=== PATIENT | male | born 1950 | race African-American/Black ===

== ENCOUNTER 2021-08-12 11:32 | Inpatient (IN) | payer OTHER ==
[2021-08-12] MEDS ORDERED: VANCOMYCIN 1,000 MG in DEXTROSE 5%-WATER - 250 ML IVPB ONE (13:02)
[2021-08-12] MEDS ORDERED: PIPERACILLIN/TAZOB 4.5 GM 4.5 GM in DEXTROSE 5%-WATER 100 ML IVPB ONE (13:02)
[2021-08-12] MEDS ORDERED: ACETAMINOPHEN 1000 MG/100 ML BAG IVPB ONE (13:02)
[2021-08-12] MEDS ORDERED: ACETAMINOPHEN INJECTION 100 ML IVPB ONE ×2 (13:57→17:45)
[2021-08-12] MEDS ORDERED: PIPERACILLIN/TAZOB 4.5 GM 4.5 GM/100 ML BAG IVPB ONE (13:58)
[2021-08-12 14:04] LABS: BASO % 0.6 % (0-2.0); HEMATOCRIT 27.7 % (35.4-49); HEMOGLOBIN 8.8 GM/dL (11.7-16.9); LYMPH % 14.9 % (8-40); MCH 25.6 pg (25.7-33.7); MCHC 31.8 g/dl (32.0-35.9); MEAN CELL VOLUME 80.7 fl (80-96); MEAN PLT VOLUME 8.4 fl (7.5-11.1); MONO % 7.9 % (3.8-10.2); NEUT % 71.6 % (42.8-82.8); PLATELET COUNT 363 10^3/uL (134-434); RBC 3.43 M/mm3 (4.00-5.60); RDW 17.5 % (11.9-15.9); WHITE BLOOD COUNT 12.3 K/mm3 (4.0-10.0)
[2021-08-12 14:42] LABS: CALCIUM 8.4 mg/dL (8.5-10.1)
[2021-08-12 14:43] LABS: ALBUMIN 2.9 g/dl (3.4-5.0); BLOOD UREA NITROGEN 26.8 mg/dL (7-18)
[2021-08-12 14:46] LABS: CREATININE 1.5 mg/dL (0.55-1.3)
[2021-08-12 14:47] LABS: BILIRUBIN,TOTAL 0.4 mg/dL (0.2-1); TOT PROT 6.9 g/dl (6.4-8.2)
[2021-08-12 14:59] LABS: ERYTHROCYTE SEDIMENTATION RATE 82 mm/hr (0-20)
[2021-08-12] MEDS ORDERED: LACTATED RINGERS SOLUTION 1000 ML INFUS.BAG IV ONE (15:02)
[2021-08-12] MEDS ORDERED: VANCOMYCIN 1 GM in D5W (PRE-DOCKED) 1,000 MG/250 ML IVPB ONE (16:54)
[2021-08-12] MEDS ORDERED: oxyCODONE HCL 5 MG TABLET ONE (17:44)
[2021-08-12] MEDS ORDERED: VANCOMYCIN 1 GRAM (PRE-DOCKED) 1,000 MG/250 ML BAG IVPB ONE (17:45)
[2021-08-12] MEDS: ACETAMINOPHEN 1000 MG/100 ML BAG IVPB PRN (17:58)
[2021-08-12] MEDS: oxyCODONE HCL 5 MG TABLET PO PRN (17:59)
[2021-08-12 21:46] LABS: EPI CELLS 4 /uL (0-25.1); HYALINE CASTS 7 /uL (0-3.1); URINE APPEARANCE CLOUDY; URINE BACTERIA 13 /uL (0-1359); URINE BILIRUBIN NEGATIVE (NEGATIVE); URINE COLOR YELLOW; URINE GLUCOSE (UA) NEGATIVE (NEGATIVE); URINE KETONE TRACE (NEGATIVE); URINE LEUK ESTERASE 3+ (NEGATIVE); URINE NITRITE NEGATIVE (NEGATIVE); URINE PROTEIN TRACE (NEGATIVE); URINE RBC 15 /uL (0-23.9); URINE UROBILINOGEN 0.2 mg/dL (0.2-1.0); URINE WBC 908 /uL (0-25.8)
[2021-08-12] MEDS ORDERED: HEPARIN NA (PORCINE) 5,000 UNITS/ML 1ML VIAL SQ SCH (22:00)
[2021-08-12] MEDS: INSULIN SLIDING SCALE (NOVOLOG) 1 VIAL SQ SCH (23:24)
[2021-08-12] MEDS: ATORVASTATIN CA 20 MG TABLET (FP) PO SCH (23:24)
[2021-08-12] MEDS: GABAPENTIN 100 MG CAPSULE PO SCH (23:24)
[2021-08-12] MEDS: BUDESONIDE/FORMETEROL FUMARATE 80/4.5 mcg INHALER IH SCH (23:25)
[2021-08-13] MEDS: ACETAMINOPHEN 1000 MG/100 ML BAG IVPB PRN (01:50)
[2021-08-13] MEDS: INSULIN SLIDING SCALE (NOVOLOG) 1 VIAL SQ SCH ×4 (06:52→22:12)
[2021-08-13] MEDS: GABAPENTIN 100 MG CAPSULE PO SCH ×3 (06:52→22:06)
[2021-08-13] MEDS: BUDESONIDE/FORMETEROL FUMARATE 80/4.5 mcg INHALER IH SCH ×2 (10:30→22:13)
[2021-08-13] MEDS: TAMSULOSIN HCL 0.4 MG CAP PO SCH (10:30)
[2021-08-13] MEDS: oxyCODONE HCL 5 MG TABLET PO PRN ×4 (10:46→23:06)
[2021-08-13] MEDS: PIPERACILLIN/TAZOB 3.375 GM 3.375 GM in DEXTROSE 5%-WATER - 50 ML IVPB SCH ×2 (15:56→18:22)
[2021-08-13] MEDS ORDERED: PIPERACILLIN/TAZOBACTAM 3.375 GM VIAL IVPB ONE (17:42)
[2021-08-13] MEDS ORDERED: DEXTROSE 5%-WATER - 50 ML IVPB ONE (17:43)
[2021-08-13] MEDS: RIVAROXABAN 10 MG TABLET PO SCH (18:35)
[2021-08-13] MEDS: FUROSEMIDE 40 MG/4 ML INJECTABLE VIAL IVPUSH SCH (18:35)
[2021-08-13] MEDS: ATORVASTATIN CA 20 MG TABLET (FP) PO SCH (22:06)
[2021-08-13] MEDS: POLYETHYLENE GLYCOL (HEALTHYLAX) 3350 17 GM PACKET PO SCH (22:06)
[2021-08-13] MEDS: DOCUSATE SODIUM 100 MG CAPSULE (FP) PO SCH (22:06)
[2021-08-14] MEDS ORDERED: PIPERACILLIN/TAZOBACTAM 3.375 GM VIAL IVPB ONE ×3 (01:06→17:11)
[2021-08-14] MEDS ORDERED: DEXTROSE 5%-WATER - 50 ML IVPB ONE ×3 (01:06→17:11)
[2021-08-14] MEDS: PIPERACILLIN/TAZOB 3.375 GM 3.375 GM in DEXTROSE 5%-WATER - 50 ML IVPB SCH ×3 (02:36→17:18)
[2021-08-14] MEDS: oxyCODONE HCL 5 MG TABLET PO PRN ×2 (05:07→19:35)
[2021-08-14] MEDS: GABAPENTIN 100 MG CAPSULE PO SCH ×3 (05:11→21:42)
[2021-08-14] MEDS: INSULIN SLIDING SCALE (NOVOLOG) 1 VIAL SQ SCH ×4 (06:10→21:46)
[2021-08-14] MEDS: FUROSEMIDE 40 MG/4 ML INJECTABLE VIAL IVPUSH SCH (09:07)
[2021-08-14] MEDS: TAMSULOSIN HCL 0.4 MG CAP PO SCH (09:07)
[2021-08-14] MEDS: POLYETHYLENE GLYCOL (HEALTHYLAX) 3350 17 GM PACKET PO SCH (09:08)
[2021-08-14] MEDS: DOCUSATE SODIUM 100 MG CAPSULE (FP) PO SCH ×2 (09:08→21:42)
[2021-08-14] MEDS: BUDESONIDE/FORMETEROL FUMARATE 80/4.5 mcg INHALER IH SCH ×2 (09:35→21:46)
[2021-08-14 13:29] LABS: BASO % 0.4 % (0-2.0); EOS % 6.1 % (0-4.5); HEMATOCRIT 29.9 % (35.4-49); HEMOGLOBIN 9.8 GM/dL (11.7-16.9); LYMPH % 14.9 % (8-40); MCH 26.1 pg (25.7-33.7); MCHC 32.6 g/dl (32.0-35.9); MEAN CELL VOLUME 79.9 fl (80-96); MEAN PLT VOLUME 8.2 fl (7.5-11.1); MONO % 8.2 % (3.8-10.2); NEUT % 70.4 % (42.8-82.8); PLATELET COUNT 377 10^3/uL (134-434); RBC 3.75 M/mm3 (4.00-5.60); RDW 17.2 % (11.9-15.9); WHITE BLOOD COUNT 9.8 K/mm3 (4.0-10.0)
[2021-08-14 14:01] LABS: CALCIUM 8.9 mg/dL (8.5-10.1)
[2021-08-14 14:02] LABS: BLOOD UREA NITROGEN 21.2 mg/dL (7-18); MAGNESIUM 2.2 mg/dL (1.8-2.4)
[2021-08-14 14:05] LABS: CREATININE 1.3 mg/dL (0.55-1.3)
[2021-08-14] MEDS: RIVAROXABAN 10 MG TABLET PO SCH (17:14)
[2021-08-14] MEDS: ATORVASTATIN CA 20 MG TABLET (FP) PO SCH (21:42)
[2021-08-15] MEDS ORDERED: DEXTROSE 5%-WATER - 50 ML IVPB ONE ×3 (01:01→17:34)
[2021-08-15] MEDS ORDERED: PIPERACILLIN/TAZOBACTAM 3.375 GM VIAL IVPB ONE ×3 (01:01→17:34)
[2021-08-15] MEDS: PIPERACILLIN/TAZOB 3.375 GM 3.375 GM in DEXTROSE 5%-WATER - 50 ML IVPB SCH ×3 (02:07→18:35)
[2021-08-15] MEDS: GABAPENTIN 100 MG CAPSULE PO SCH ×3 (06:00→21:18)
[2021-08-15] MEDS: INSULIN SLIDING SCALE (NOVOLOG) 1 VIAL SQ SCH ×4 (06:12→21:19)
[2021-08-15] MEDS: DOCUSATE SODIUM 100 MG CAPSULE (FP) PO SCH ×2 (09:33→21:18)
[2021-08-15] MEDS: TAMSULOSIN HCL 0.4 MG CAP PO SCH (09:33)
[2021-08-15] MEDS: POLYETHYLENE GLYCOL (HEALTHYLAX) 3350 17 GM PACKET PO SCH (09:35)
[2021-08-15] MEDS: FUROSEMIDE 40 MG/4 ML INJECTABLE VIAL IVPUSH SCH (09:35)
[2021-08-15] MEDS: BUDESONIDE/FORMETEROL FUMARATE 80/4.5 mcg INHALER IH SCH ×2 (09:36→21:19)
[2021-08-15 11:38] LABS: BASO % 0.7 % (0-2.0); EOS % 4.3 % (0-4.5); HEMATOCRIT 31.2 % (35.4-49); HEMOGLOBIN 9.6 GM/dL (11.7-16.9); LYMPH % 15.8 % (8-40); MCH 25.2 pg (25.7-33.7); MEAN CELL VOLUME 81.5 fl (80-96); MEAN PLT VOLUME 8.8 fl (7.5-11.1); MONO % 5.2 % (3.8-10.2); PLATELET COUNT 469 10^3/uL (134-434); RBC 3.82 M/mm3 (4.00-5.60); RDW 17.7 % (11.9-15.9); WHITE BLOOD COUNT 11.6 K/mm3 (4.0-10.0)
[2021-08-15 12:08] LABS: BLOOD UREA NITROGEN 24.9 mg/dL (7-18); MAGNESIUM 2.6 mg/dL (1.8-2.4)
[2021-08-15 12:11] LABS: CREATININE 1.5 mg/dL (0.55-1.3); PHOSPHOROUS 4.4 mg/dL (2.5-4.9)
[2021-08-15] MEDS: oxyCODONE HCL 5 MG TABLET PO PRN (15:19)
[2021-08-15] MEDS: RIVAROXABAN 10 MG TABLET PO SCH (18:35)
[2021-08-15] MEDS ORDERED: INSULIN (NOVOLOG) ASPART 100 UNITS/ML 10ML VIAL ONE (21:04)
[2021-08-15] MEDS: ATORVASTATIN CA 20 MG TABLET (FP) PO SCH (21:18)
[2021-08-16] MEDS ORDERED: oxyCODONE HCL 5 MG TABLET PO ONE (00:09)
[2021-08-16] MEDS ORDERED: PIPERACILLIN/TAZOBACTAM 3.375 GM VIAL IVPB ONE ×3 (00:23→17:06)
[2021-08-16] MEDS ORDERED: DEXTROSE 5%-WATER - 50 ML IVPB ONE ×3 (00:23→17:06)
[2021-08-16] MEDS: PIPERACILLIN/TAZOB 3.375 GM 3.375 GM in DEXTROSE 5%-WATER - 50 ML IVPB SCH ×3 (01:09→17:28)
[2021-08-16] MEDS: GABAPENTIN 100 MG CAPSULE PO SCH ×3 (06:11→21:24)
[2021-08-16] MEDS: INSULIN SLIDING SCALE (NOVOLOG) 1 VIAL SQ SCH ×4 (06:13→21:28)
[2021-08-16 08:18] LABS: BASO % 0.4 % (0-2.0); EOS % 4.3 % (0-4.5); HEMATOCRIT 30.6 % (35.4-49); HEMOGLOBIN 9.6 GM/dL (11.7-16.9); LYMPH % 14.8 % (8-40); MCH 25.2 pg (25.7-33.7); MCHC 31.5 g/dl (32.0-35.9); MEAN CELL VOLUME 80.2 fl (80-96); MEAN PLT VOLUME 8.2 fl (7.5-11.1); MONO % 7.1 % (3.8-10.2); NEUT % 73.4 % (42.8-82.8); PLATELET COUNT 432 10^3/uL (134-434); RBC 3.82 M/mm3 (4.00-5.60); RDW 18.1 % (11.9-15.9); WHITE BLOOD COUNT 11.2 K/mm3 (4.0-10.0)
[2021-08-16 08:36] LABS: CALCIUM 8.8 mg/dL (8.5-10.1)
[2021-08-16 08:37] LABS: CREATININE 1.5 mg/dL (0.55-1.3); MAGNESIUM 2.7 mg/dL (1.8-2.4)
[2021-08-16 08:38] LABS: BLOOD UREA NITROGEN 22.1 mg/dL (7-18)
[2021-08-16 08:41] LABS: PHOSPHOROUS 3.7 mg/dL (2.5-4.9)
[2021-08-16] MEDS: POLYETHYLENE GLYCOL (HEALTHYLAX) 3350 17 GM PACKET PO SCH (09:55)
[2021-08-16] MEDS: DOCUSATE SODIUM 100 MG CAPSULE (FP) PO SCH ×2 (09:55→21:24)
[2021-08-16] MEDS: TAMSULOSIN HCL 0.4 MG CAP PO SCH (09:55)
[2021-08-16] MEDS: BUDESONIDE/FORMETEROL FUMARATE 80/4.5 mcg INHALER IH SCH ×2 (09:55→21:23)
[2021-08-16] MEDS: FUROSEMIDE 40 MG/4 ML INJECTABLE VIAL IVPUSH SCH (09:55)
[2021-08-16 15:16] LABS: EPI CELLS >36 /uL (0-25.1); HYALINE CASTS 2 /uL (0-3.1); URINE APPEARANCE CLEAR; URINE BACTERIA 19 /uL (0-1359); URINE BILIRUBIN NEGATIVE (NEGATIVE); URINE COLOR YELLOW; URINE GLUCOSE (UA) NEGATIVE (NEGATIVE); URINE KETONE NEGATIVE (NEGATIVE); URINE LEUK ESTERASE 3+ (NEGATIVE); URINE NITRITE NEGATIVE (NEGATIVE); URINE PROTEIN TRACE (NEGATIVE); URINE RBC 8 /uL (0-23.9); URINE UROBILINOGEN 0.2 mg/dL (0.2-1.0); URINE WBC 355 /uL (0-25.8)
[2021-08-16] MEDS: oxyCODONE HCL 5 MG TABLET PO PRN ×2 (16:47→22:30)
[2021-08-16] MEDS: RIVAROXABAN 10 MG TABLET PO SCH ×3 (17:27→17:57)
[2021-08-16] MEDS: ATORVASTATIN CA 20 MG TABLET (FP) PO SCH (21:23)
[2021-08-16] MEDS ORDERED: INSULIN (NOVOLOG) ASPART 100 UNITS/ML 10ML VIAL ONE (21:28)
[2021-08-17] MEDS ORDERED: PIPERACILLIN/TAZOBACTAM 3.375 GM VIAL IVPB ONE ×3 (01:12→16:37)
[2021-08-17] MEDS ORDERED: DEXTROSE 5%-WATER - 50 ML IVPB ONE ×3 (01:12→16:37)
[2021-08-17] MEDS: PIPERACILLIN/TAZOB 3.375 GM 3.375 GM in DEXTROSE 5%-WATER - 50 ML IVPB SCH ×3 (01:32→17:31)
[2021-08-17] MEDS: oxyCODONE HCL 5 MG TABLET PO PRN ×3 (04:10→20:29)
[2021-08-17] MEDS: GABAPENTIN 100 MG CAPSULE PO SCH ×3 (06:37→22:39)
[2021-08-17] MEDS: INSULIN SLIDING SCALE (NOVOLOG) 1 VIAL SQ SCH ×4 (06:42→22:41)
[2021-08-17] MEDS: TAMSULOSIN HCL 0.4 MG CAP PO SCH (10:36)
[2021-08-17] MEDS: POLYETHYLENE GLYCOL (HEALTHYLAX) 3350 17 GM PACKET PO SCH (10:36)
[2021-08-17] MEDS: DOCUSATE SODIUM 100 MG CAPSULE (FP) PO SCH ×2 (10:36→22:39)
[2021-08-17] MEDS: FUROSEMIDE 40 MG/4 ML INJECTABLE VIAL IVPUSH SCH (10:36)
[2021-08-17] MEDS: BUDESONIDE/FORMETEROL FUMARATE 80/4.5 mcg INHALER IH SCH ×2 (10:46→22:40)
[2021-08-17 14:47] VITALS: BMI 39.4
[2021-08-17] MEDS: RIVAROXABAN 10 MG TABLET PO SCH (17:34)
[2021-08-17] MEDS ORDERED: ACETAMINOPHEN 1000 MG/100 ML BAG IVPB ONE (19:05)
[2021-08-17 19:59] LABS: BASO % 0.2 % (0-2.0); EOS % 3.1 % (0-4.5); HEMATOCRIT 28.3 % (35.4-49); HEMOGLOBIN 9.2 GM/dL (11.7-16.9); LYMPH % 11.1 % (8-40); MCH 25.8 pg (25.7-33.7); MCHC 32.6 g/dl (32.0-35.9); MEAN CELL VOLUME 79.2 fl (80-96); MONO % 5.3 % (3.8-10.2); NEUT % 80.3 % (42.8-82.8); PLATELET COUNT 427 10^3/uL (134-434); RBC 3.58 M/mm3 (4.00-5.60); RDW 17.6 % (11.9-15.9); WHITE BLOOD COUNT 11.9 K/mm3 (4.0-10.0)
[2021-08-17 20:24] LABS: CALCIUM 8.9 mg/dL (8.5-10.1)
[2021-08-17 20:25] LABS: BLOOD UREA NITROGEN 25.7 mg/dL (7-18); MAGNESIUM 2.5 mg/dL (1.8-2.4)
[2021-08-17 20:28] LABS: CREATININE 1.6 mg/dL (0.55-1.3); PHOSPHOROUS 3.9 mg/dL (2.5-4.9)
[2021-08-17] MEDS: ATORVASTATIN CA 20 MG TABLET (FP) PO SCH (22:39)
[2021-08-18] MEDS ORDERED: PIPERACILLIN/TAZOBACTAM 3.375 GM VIAL IVPB ONE ×3 (00:42→17:36)
[2021-08-18] MEDS ORDERED: DEXTROSE 5%-WATER - 50 ML IVPB ONE ×3 (00:42→17:37)
[2021-08-18] MEDS: PIPERACILLIN/TAZOB 3.375 GM 3.375 GM in DEXTROSE 5%-WATER - 50 ML IVPB SCH ×3 (01:46→18:01)
[2021-08-18] MEDS: GABAPENTIN 100 MG CAPSULE PO SCH ×3 (06:00→21:22)
[2021-08-18] MEDS: INSULIN SLIDING SCALE (NOVOLOG) 1 VIAL SQ SCH ×4 (06:00→21:43)
[2021-08-18] MEDS: FUROSEMIDE 40 MG/4 ML INJECTABLE VIAL IVPUSH SCH (09:34)
[2021-08-18] MEDS: TAMSULOSIN HCL 0.4 MG CAP PO SCH (09:34)
[2021-08-18] MEDS: POLYETHYLENE GLYCOL (HEALTHYLAX) 3350 17 GM PACKET PO SCH (09:34)
[2021-08-18] MEDS: DOCUSATE SODIUM 100 MG CAPSULE (FP) PO SCH ×2 (09:34→21:22)
[2021-08-18] MEDS: INSULIN (LEVEMIR) 100 UNITS/ML UNITS SQ SCH ×2 (09:35→21:44)
[2021-08-18] MEDS: BUDESONIDE/FORMETEROL FUMARATE 80/4.5 mcg INHALER IH SCH ×2 (09:35→21:57)
[2021-08-18 10:51] LABS: BASO % 0.3 % (0-2.0); HEMATOCRIT 30.2 % (35.4-49); HEMOGLOBIN 9.5 GM/dL (11.7-16.9); LYMPH % 14.2 % (8-40); MCH 25.2 pg (25.7-33.7); MCHC 31.4 g/dl (32.0-35.9); MEAN CELL VOLUME 80.2 fl (80-96); MEAN PLT VOLUME 8.3 fl (7.5-11.1); MONO % 8.6 % (3.8-10.2); NEUT % 72.9 % (42.8-82.8); PLATELET COUNT 463 10^3/uL (134-434); RBC 3.76 M/mm3 (4.00-5.60); RDW 17.3 % (11.9-15.9); WHITE BLOOD COUNT 11.9 K/mm3 (4.0-10.0)
[2021-08-18 12:17] LABS: BLOOD UREA NITROGEN 25.6 mg/dL (7-18); CALCIUM 8.8 mg/dL (8.5-10.1); CREATININE 1.2 mg/dL (0.55-1.3); MAGNESIUM 2.7 mg/dL (1.8-2.4); PHOSPHOROUS 3.7 mg/dL (2.5-4.9)
[2021-08-18] MEDS: ACETAMINOPHEN 325 MG TABLET (FP) PO PRN ×2 (12:40→18:01)
[2021-08-18] MEDS: oxyCODONE HCL 5 MG TABLET PO PRN ×3 (12:40→21:32)
[2021-08-18] MEDS: FERROUS SO4 325 MG TABLET (FP) PO SCH (12:40)
[2021-08-18] MEDS: RIVAROXABAN 10 MG TABLET PO SCH (17:24)
[2021-08-18] MEDS: ATORVASTATIN CA 20 MG TABLET (FP) PO SCH (21:22)
[2021-08-19] MEDS: PIPERACILLIN/TAZOB 3.375 GM 3.375 GM in DEXTROSE 5%-WATER - 50 ML IVPB SCH ×3 (01:53→18:31)
[2021-08-19] MEDS: oxyCODONE HCL 5 MG TABLET PO PRN ×5 (02:47→23:02)
[2021-08-19] MEDS: GABAPENTIN 100 MG CAPSULE PO SCH ×3 (06:43→21:28)
[2021-08-19] MEDS: FUROSEMIDE 40 MG/4 ML INJECTABLE VIAL IVPUSH SCH ×2 (06:44→13:24)
[2021-08-19] MEDS: INSULIN (LEVEMIR) 100 UNITS/ML UNITS SQ SCH ×2 (06:50→21:34)
[2021-08-19] MEDS: INSULIN SLIDING SCALE (NOVOLOG) 1 VIAL SQ SCH ×4 (06:50→21:40)
[2021-08-19 11:43] LABS: BASO % 0.3 % (0-2.0); EOS % 4.5 % (0-4.5); HEMATOCRIT 30.2 % (35.4-49); HEMOGLOBIN 9.6 GM/dL (11.7-16.9); LYMPH % 15.3 % (8-40); MCHC 31.8 g/dl (32.0-35.9); MEAN CELL VOLUME 78.7 fl (80-96); MEAN PLT VOLUME 8.3 fl (7.5-11.1); MONO % 5.8 % (3.8-10.2); NEUT % 74.1 % (42.8-82.8); PLATELET COUNT 516 10^3/uL (134-434); RBC 3.84 M/mm3 (4.00-5.60); RDW 17.4 % (11.9-15.9)
[2021-08-19 11:56] LABS: BLOOD UREA NITROGEN 31.7 mg/dL (7-18)
[2021-08-19 11:59] LABS: CREATININE 1.7 mg/dL (0.55-1.3)
[2021-08-19] MEDS ORDERED: DEXTROSE 5%-WATER - 50 ML IVPB ONE ×2 (12:21→17:16)
[2021-08-19] MEDS ORDERED: PIPERACILLIN/TAZOBACTAM 3.375 GM VIAL IVPB ONE ×2 (12:21→17:16)
[2021-08-19] MEDS: FERROUS SO4 325 MG TABLET (FP) PO SCH (12:51)
[2021-08-19] MEDS: TAMSULOSIN HCL 0.4 MG CAP PO SCH (12:51)
[2021-08-19] MEDS: DOCUSATE SODIUM 100 MG CAPSULE (FP) PO SCH ×2 (12:51→21:28)
[2021-08-19] MEDS: BUDESONIDE/FORMETEROL FUMARATE 80/4.5 mcg INHALER IH SCH ×2 (12:52→21:28)
[2021-08-19] MEDS: Insulin (LOG) Aspart 100 UNITS/ML VIAL SQ SCH ×2 (13:01→17:46)
[2021-08-19] MEDS: POLYETHYLENE GLYCOL (HEALTHYLAX) 3350 17 GM PACKET PO SCH (13:23)
[2021-08-19] MEDS ORDERED: ACETAMINOPHEN 1000 MG/100 ML BAG IVPB ONE (17:08)
[2021-08-19] MEDS: RIVAROXABAN 10 MG TABLET PO SCH (18:35)
[2021-08-19] MEDS ORDERED: oxyCODONE HCL 5 MG TABLET PO ONE (18:37)
[2021-08-19] MEDS: ATORVASTATIN CA 20 MG TABLET (FP) PO SCH (21:28)
[2021-08-20] MEDS ORDERED: DEXTROSE 5%-WATER - 50 ML IVPB ONE ×3 (01:02→20:46)
[2021-08-20] MEDS ORDERED: PIPERACILLIN/TAZOBACTAM 3.375 GM VIAL IVPB ONE ×3 (01:02→20:46)
[2021-08-20] MEDS: PIPERACILLIN/TAZOB 3.375 GM 3.375 GM in DEXTROSE 5%-WATER - 50 ML IVPB SCH ×3 (01:19→21:49)
[2021-08-20] MEDS: ACETAMINOPHEN 325 MG TABLET (FP) PO PRN ×3 (02:07→21:48)
[2021-08-20] MEDS: FUROSEMIDE 40 MG/4 ML INJECTABLE VIAL IVPUSH SCH ×2 (05:38→15:29)
[2021-08-20] MEDS: GABAPENTIN 100 MG CAPSULE PO SCH ×3 (05:38→21:47)
[2021-08-20] MEDS: oxyCODONE HCL 5 MG TABLET PO PRN (05:40)
[2021-08-20] MEDS: INSULIN SLIDING SCALE (NOVOLOG) 1 VIAL SQ SCH ×4 (06:10→21:49)
[2021-08-20] MEDS: Insulin (LOG) Aspart 100 UNITS/ML VIAL SQ SCH ×3 (06:10→17:33)
[2021-08-20] MEDS: INSULIN (LEVEMIR) 100 UNITS/ML UNITS SQ SCH ×2 (06:11→21:48)
[2021-08-20 09:47] LABS: BASO % 0.4 % (0-2.0); EOS % 3.7 % (0-4.5); HEMATOCRIT 27.8 % (35.4-49); LYMPH % 13.2 % (8-40); MCH 25.3 pg (25.7-33.7); MCHC 32.4 g/dl (32.0-35.9); MEAN CELL VOLUME 78.2 fl (80-96); MEAN PLT VOLUME 8.1 fl (7.5-11.1); MONO % 10.1 % (3.8-10.2); NEUT % 72.6 % (42.8-82.8); PLATELET COUNT 538 10^3/uL (134-434); RBC 3.56 M/mm3 (4.00-5.60); RDW 17.2 % (11.9-15.9); WHITE BLOOD COUNT 12.5 K/mm3 (4.0-10.0)
[2021-08-20] MEDS: FERROUS SO4 325 MG TABLET (FP) PO SCH (09:51)
[2021-08-20] MEDS: POLYETHYLENE GLYCOL (HEALTHYLAX) 3350 17 GM PACKET PO SCH (09:51)
[2021-08-20] MEDS: DOCUSATE SODIUM 100 MG CAPSULE (FP) PO SCH ×2 (09:52→21:47)
[2021-08-20] MEDS: TAMSULOSIN HCL 0.4 MG CAP PO SCH (09:52)
[2021-08-20 10:12] LABS: CALCIUM 8.7 mg/dL (8.5-10.1)
[2021-08-20 10:13] LABS: BLOOD UREA NITROGEN 29.9 mg/dL (7-18)
[2021-08-20 10:16] LABS: CREATININE 1.6 mg/dL (0.55-1.3)
[2021-08-20] MEDS: BUDESONIDE/FORMETEROL FUMARATE 80/4.5 mcg INHALER IH SCH ×2 (11:58→21:53)
[2021-08-20] MEDS: RIVAROXABAN 10 MG TABLET PO SCH (17:33)
[2021-08-20] MEDS: ATORVASTATIN CA 20 MG TABLET (FP) PO SCH (21:52)
[2021-08-21] MEDS: oxyCODONE HCL 5 MG TABLET PO PRN ×3 (00:21→21:03)
[2021-08-21] MEDS: ACETAMINOPHEN 325 MG TABLET (FP) PO PRN ×2 (03:02→16:07)
[2021-08-21] MEDS ORDERED: oxyCODONE HCL 5 MG TABLET PO ONE (03:09)
[2021-08-21] MEDS ORDERED: DEXTROSE 5%-WATER - 50 ML IVPB ONE ×2 (05:01→11:23)
[2021-08-21] MEDS ORDERED: PIPERACILLIN/TAZOBACTAM 3.375 GM VIAL IVPB ONE ×2 (05:01→11:23)
[2021-08-21] MEDS: PIPERACILLIN/TAZOB 3.375 GM 3.375 GM in DEXTROSE 5%-WATER - 50 ML IVPB SCH ×2 (05:23→11:35)
[2021-08-21] MEDS: GABAPENTIN 100 MG CAPSULE PO SCH ×3 (05:23→21:03)
[2021-08-21] MEDS: FUROSEMIDE 40 MG/4 ML INJECTABLE VIAL IVPUSH SCH (05:23)
[2021-08-21] MEDS ORDERED: ACETAMINOPHEN 1000 MG/100 ML BAG IVPB ONE (05:34)
[2021-08-21] MEDS: INSULIN (LEVEMIR) 100 UNITS/ML UNITS SQ SCH ×2 (06:27→21:10)
[2021-08-21] MEDS: INSULIN SLIDING SCALE (NOVOLOG) 1 VIAL SQ SCH ×4 (06:31→21:09)
[2021-08-21] MEDS: Insulin (LOG) Aspart 100 UNITS/ML VIAL SQ SCH ×2 (07:04→11:37)
[2021-08-21] MEDS: DOCUSATE SODIUM 100 MG CAPSULE (FP) PO SCH ×2 (10:16→21:02)
[2021-08-21] MEDS: FERROUS SO4 325 MG TABLET (FP) PO SCH (10:16)
[2021-08-21] MEDS: TAMSULOSIN HCL 0.4 MG CAP PO SCH (10:17)
[2021-08-21] MEDS: POLYETHYLENE GLYCOL (HEALTHYLAX) 3350 17 GM PACKET PO SCH (10:17)
[2021-08-21] MEDS: BUDESONIDE/FORMETEROL FUMARATE 80/4.5 mcg INHALER IH SCH ×2 (10:17→21:12)
[2021-08-21 11:06] LABS: BASO % 0.3 % (0-2.0); EOS % 3.6 % (0-4.5); HEMATOCRIT 30.3 % (35.4-49); HEMOGLOBIN 9.9 GM/dL (11.7-16.9); LYMPH % 18.3 % (8-40); MCHC 32.6 g/dl (32.0-35.9); MEAN CELL VOLUME 79.8 fl (80-96); MEAN PLT VOLUME 7.7 fl (7.5-11.1); MONO % 9.4 % (3.8-10.2); NEUT % 68.4 % (42.8-82.8); PLATELET COUNT 481 10^3/uL (134-434); RBC 3.79 M/mm3 (4.00-5.60); RDW 17.6 % (11.9-15.9); WHITE BLOOD COUNT 9.9 K/mm3 (4.0-10.0)
[2021-08-21 11:32] LABS: BLOOD UREA NITROGEN 30.9 mg/dL (7-18); MAGNESIUM 2.5 mg/dL (1.8-2.4)
[2021-08-21] MEDS ORDERED: INSULIN (NOVOLOG) ASPART 100 UNITS/ML 10ML VIAL ONE (11:32)
[2021-08-21 11:33] LABS: ALBUMIN 2.7 g/dl (3.4-5.0)
[2021-08-21 11:34] LABS: CALCIUM 9.1 mg/dL (8.5-10.1)
[2021-08-21 11:35] LABS: CREATININE 1.7 mg/dL (0.55-1.3); PHOSPHOROUS 3.8 mg/dL (2.5-4.9)
[2021-08-21 11:36] LABS: TOT PROT 7.6 g/dl (6.4-8.2)
[2021-08-21 11:37] LABS: BILIRUBIN,TOTAL 0.3 mg/dL (0.2-1)
[2021-08-21] MEDS: INSULIN (NOVOLOG) ASPART 100 UNITS/ML 10ML VIAL SQ SCH (16:21)
[2021-08-21] MEDS: RIVAROXABAN 10 MG TABLET PO SCH (18:30)
[2021-08-21] MEDS ORDERED: DEXTROSE 5%-WATER 100 ML IVPB ONE (20:45)
[2021-08-21] MEDS ORDERED: DOXYCYCLINE HYCLATE 100 MG VIAL ONE (20:45)
[2021-08-21] MEDS: ATORVASTATIN CA 20 MG TABLET (FP) PO SCH (21:02)
[2021-08-21] MEDS: DOXYCYCLINE INJECTION 100 MG in DEXTROSE 5%-WATER 100 ML IVPB SCH (21:11)
[2021-08-22] MEDS: oxyCODONE HCL 5 MG TABLET PO PRN ×3 (02:18→22:30)
[2021-08-22] MEDS: GABAPENTIN 100 MG CAPSULE PO SCH ×3 (06:12→22:29)
[2021-08-22] MEDS: INSULIN (NOVOLOG) ASPART 100 UNITS/ML 10ML VIAL SQ SCH ×3 (06:17→16:58)
[2021-08-22] MEDS: INSULIN (LEVEMIR) 100 UNITS/ML UNITS SQ SCH ×2 (06:17→22:33)
[2021-08-22] MEDS: INSULIN SLIDING SCALE (NOVOLOG) 1 VIAL SQ SCH ×4 (06:18→22:49)
[2021-08-22 09:01] LABS: BASO % 0.2 % (0-2.0); EOS % 4.9 % (0-4.5); HEMOGLOBIN 9.4 GM/dL (11.7-16.9); LYMPH % 14.8 % (8-40); MCH 26.2 pg (25.7-33.7); MCHC 33.6 g/dl (32.0-35.9); MEAN CELL VOLUME 77.8 fl (80-96); MEAN PLT VOLUME 7.6 fl (7.5-11.1); MONO % 8.2 % (3.8-10.2); NEUT % 71.9 % (42.8-82.8); PLATELET COUNT 522 10^3/uL (134-434); RDW 17.3 % (11.9-15.9); WHITE BLOOD COUNT 10.7 K/mm3 (4.0-10.0)
[2021-08-22 09:22] LABS: BLOOD UREA NITROGEN 37.3 mg/dL (7-18); CALCIUM 9.3 mg/dL (8.5-10.1); MAGNESIUM 2.7 mg/dL (1.8-2.4)
[2021-08-22 09:27] LABS: CREATININE 1.7 mg/dL (0.55-1.3); PHOSPHOROUS 3.7 mg/dL (2.5-4.9)
[2021-08-22] MEDS ORDERED: DOXYCYCLINE HYCLATE 100 MG VIAL ONE ×2 (10:57→22:12)
[2021-08-22] MEDS ORDERED: DEXTROSE 5%-WATER 100 ML IVPB ONE ×2 (10:58→22:12)
[2021-08-22] MEDS: POLYETHYLENE GLYCOL (HEALTHYLAX) 3350 17 GM PACKET PO SCH (11:03)
[2021-08-22] MEDS: FERROUS SO4 325 MG TABLET (FP) PO SCH (11:03)
[2021-08-22] MEDS: FUROSEMIDE 40 MG/4 ML INJECTABLE VIAL IVPUSH SCH (11:03)
[2021-08-22] MEDS: BUDESONIDE/FORMETEROL FUMARATE 80/4.5 mcg INHALER IH SCH ×2 (11:03→22:33)
[2021-08-22] MEDS: TAMSULOSIN HCL 0.4 MG CAP PO SCH (11:03)
[2021-08-22] MEDS: DOCUSATE SODIUM 100 MG CAPSULE (FP) PO SCH ×2 (11:03→22:29)
[2021-08-22] MEDS: ACETAMINOPHEN 325 MG TABLET (FP) PO PRN (14:12)
[2021-08-22] MEDS ORDERED: ACETAMINOPHEN 1000 MG/100 ML BAG IVPB SCH (16:00)
[2021-08-22] MEDS: DOXYCYCLINE INJECTION 100 MG in DEXTROSE 5%-WATER 100 ML IVPB SCH ×2 (17:11→22:30)
[2021-08-22] MEDS: ACETAMINOPHEN 1000 MG/100 ML BAG IVPB SCH (17:11)
[2021-08-22] MEDS: RIVAROXABAN 10 MG TABLET PO SCH (17:40)
[2021-08-22] MEDS ORDERED: oxyCODONE HCL 5 MG TABLET PO SCH (20:00)
[2021-08-22] MEDS: ATORVASTATIN CA 20 MG TABLET (FP) PO SCH (22:29)
[2021-08-23] MEDS: ACETAMINOPHEN 1000 MG/100 ML BAG IVPB SCH ×2 (00:37→09:31)
[2021-08-23] MEDS: oxyCODONE HCL 5 MG TABLET PO PRN ×3 (03:41→21:08)
[2021-08-23] MEDS: GABAPENTIN 100 MG CAPSULE PO SCH ×3 (06:30→21:04)
[2021-08-23] MEDS: INSULIN (LEVEMIR) 100 UNITS/ML UNITS SQ SCH ×2 (06:31→21:03)
[2021-08-23] MEDS: INSULIN SLIDING SCALE (NOVOLOG) 1 VIAL SQ SCH ×4 (06:32→21:07)
[2021-08-23] MEDS: INSULIN (NOVOLOG) ASPART 100 UNITS/ML 10ML VIAL SQ SCH ×3 (06:36→17:04)
[2021-08-23 08:04] LABS: BASO % 0.2 % (0-2.0); EOS % 4.5 % (0-4.5); HEMATOCRIT 29.1 % (35.4-49); HEMOGLOBIN 9.7 GM/dL (11.7-16.9); LYMPH % 18.6 % (8-40); MCHC 33.5 g/dl (32.0-35.9); MEAN CELL VOLUME 77.8 fl (80-96); MEAN PLT VOLUME 7.5 fl (7.5-11.1); MONO % 7.6 % (3.8-10.2); NEUT % 69.1 % (42.8-82.8); PLATELET COUNT 552 10^3/uL (134-434); RBC 3.74 M/mm3 (4.00-5.60); RDW 17.4 % (11.9-15.9); WHITE BLOOD COUNT 10.5 K/mm3 (4.0-10.0)
[2021-08-23 08:16] LABS: CALCIUM 9.2 mg/dL (8.5-10.1)
[2021-08-23 08:17] LABS: BLOOD UREA NITROGEN 35.9 mg/dL (7-18)
[2021-08-23 08:18] LABS: MAGNESIUM 2.7 mg/dL (1.8-2.4)
[2021-08-23 08:20] LABS: CREATININE 1.7 mg/dL (0.55-1.3)
[2021-08-23] MEDS ORDERED: DOXYCYCLINE HYCLATE 100 MG VIAL ONE ×2 (09:11→20:10)
[2021-08-23] MEDS ORDERED: DEXTROSE 5%-WATER 100 ML IVPB ONE ×2 (09:11→20:11)
[2021-08-23] MEDS: POLYETHYLENE GLYCOL (HEALTHYLAX) 3350 17 GM PACKET PO SCH (09:31)
[2021-08-23] MEDS: TAMSULOSIN HCL 0.4 MG CAP PO SCH (09:32)
[2021-08-23] MEDS: FUROSEMIDE 40 MG/4 ML INJECTABLE VIAL IVPUSH SCH (09:32)
[2021-08-23] MEDS: DOCUSATE SODIUM 100 MG CAPSULE (FP) PO SCH ×2 (09:32→21:02)
[2021-08-23] MEDS: FERROUS SO4 325 MG TABLET (FP) PO SCH (09:32)
[2021-08-23] MEDS: DOXYCYCLINE INJECTION 100 MG in DEXTROSE 5%-WATER 100 ML IVPB SCH ×2 (09:32→21:08)
[2021-08-23] MEDS: BUDESONIDE/FORMETEROL FUMARATE 80/4.5 mcg INHALER IH SCH ×2 (10:49→21:07)
[2021-08-23] MEDS: RIVAROXABAN 10 MG TABLET PO SCH (17:41)
[2021-08-23] MEDS: ATORVASTATIN CA 20 MG TABLET (FP) PO SCH (21:04)
[2021-08-24] MEDS: GABAPENTIN 100 MG CAPSULE PO SCH ×2 (05:43→13:23)
[2021-08-24] MEDS: oxyCODONE HCL 5 MG TABLET PO PRN ×3 (05:50→15:38)
[2021-08-24] MEDS: INSULIN (LEVEMIR) 100 UNITS/ML UNITS SQ SCH (06:17)
[2021-08-24] MEDS: INSULIN (NOVOLOG) ASPART 100 UNITS/ML 10ML VIAL SQ SCH ×3 (06:17→17:34)
[2021-08-24] MEDS: INSULIN SLIDING SCALE (NOVOLOG) 1 VIAL SQ SCH ×3 (06:18→17:34)
[2021-08-24] MEDS ORDERED: DEXTROSE 5%-WATER 100 ML IVPB ONE (09:43)
[2021-08-24] MEDS ORDERED: DOXYCYCLINE HYCLATE 100 MG VIAL ONE (09:43)
[2021-08-24] MEDS: POLYETHYLENE GLYCOL (HEALTHYLAX) 3350 17 GM PACKET PO SCH (10:17)
[2021-08-24] MEDS: DOXYCYCLINE INJECTION 100 MG in DEXTROSE 5%-WATER 100 ML IVPB SCH (10:17)
[2021-08-24] MEDS: FUROSEMIDE 40 MG/4 ML INJECTABLE VIAL IVPUSH SCH (10:17)
[2021-08-24] MEDS: FERROUS SO4 325 MG TABLET (FP) PO SCH (10:18)
[2021-08-24] MEDS: BUDESONIDE/FORMETEROL FUMARATE 80/4.5 mcg INHALER IH SCH (10:18)
[2021-08-24] MEDS: DOCUSATE SODIUM 100 MG CAPSULE (FP) PO SCH (10:18)
[2021-08-24] MEDS: TAMSULOSIN HCL 0.4 MG CAP PO SCH (10:18)
[2021-08-24 14:07] VITALS: BP 126/78; PULSE 82; TEMP 97.3
== END 2021-08-24 18:54 | DRG 603 ==
LOC: JER 11:32 → JERBED 15:23 → J7W 21:59
PROVIDERS: ADMIT Internal Medicine; ATTEND Internal Medicine
DX: L03.116 Cellulitis of left lower limb (principal); L97.902 Non-pressure chronic ulcer of unspecified part of unspecified lower leg with fat layer exposed; N39.0 Urinary tract infection, site not specified; E11.51 Type 2 diabetes mellitus with diabetic peripheral angiopathy without gangrene; L03.115 Cellulitis of right lower limb; E11.621 Type 2 diabetes mellitus with foot ulcer; E11.40 Type 2 diabetes mellitus with diabetic neuropathy, unspecified; R60.1 Generalized edema; N18.9 Chronic kidney disease, unspecified; E78.5 Hyperlipidemia, unspecified; N40.0 Benign prostatic hyperplasia without lower urinary tract symptoms; J45.909 Unspecified asthma, uncomplicated; I12.9 Hypertensive chronic kidney disease with stage 1 through stage 4 chronic kidney disease, or unspecified chronic kidney disease; E66.9 Obesity, unspecified; Z68.38 Body mass index [BMI] 38.0-38.9, adult
CPT/HCPCS: 36415; 71046-TC-FY; 73590-TC-LT-FY; 73590-TC-RT-FY; 76775-TC; 80048; 80053; 81003; 82570; 82728; 82962; 83540; 83550; 83605; 83735; 84100; 84156; 84540; 85025; 85651; 86140; 87040; 87081; 87086; 93005; 93010; 93306-TC; 93971; 97116-GP; 97162-GP; 99285-25; C9803; E0186; G0463-25; U0003; U0005

== ENCOUNTER 2021-09-14 04:26 | Day surgery (SDC) | payer OTHER ==
[2021-09-13 10:26] VITALS: BMI 35.4
[2021-09-14] MEDS ORDERED: LIDOCAINE HCL/PF 1% SDV 5ML VIAL ONE ×2 (07:08→11:23)
[2021-09-14] MEDS ORDERED: ACETAMINOPHEN 325 MG TABLET (FP) ONE (10:04)
[2021-09-14] MEDS ORDERED: LIDOCAINE 1% P/F 10 MG/ML VIAL INF ONE (11:20)
[2021-09-14 13:13] VITALS: BP 140/74; PULSE 80; TEMP 98
== END 2021-09-14 13:14 ==
LOC: JASU-SURG 04:26
PROVIDERS: ATTEND Pain Medicine Pain Medicine
PROC: 01HY3MZ Insertion of Neurostimulator Lead into Peripheral Nerve, Percutaneous Approach (ICD-10-PCS; principal; 2021-09-14 11:00)
DX: G89.4 Chronic pain syndrome (principal); M25.571 Pain in right ankle and joints of right foot
CPT/HCPCS: 64555; C1897; 82962

== ENCOUNTER 2021-09-28 04:30 | Day surgery (SDC) | payer OTHER ==
[2021-09-28] MEDS ORDERED: LIDOCAINE HCL/PF 1% SDV 5ML VIAL ONE (07:12)
[2021-09-28] MEDS ORDERED: LIDOCAINE HCL 1% PRESERVATIVE FREE - 30ML VIAL IJ ONE ×2 (10:48)
[2021-09-28 11:58] VITALS: BP 122/57; PULSE 71; TEMP 98.9
== END 2021-09-28 12:10 | disposition home or self-care (01) ==
LOC: JASU-SURG 04:30
PROVIDERS: ATTEND Pain Medicine Pain Medicine
PROC: 01HY3MZ Insertion of Neurostimulator Lead into Peripheral Nerve, Percutaneous Approach (ICD-10-PCS; principal; 2021-09-28 10:00)
DX: G89.4 Chronic pain syndrome (principal); M54.32 Sciatica, left side; I10 Essential (primary) hypertension; E11.9 Type 2 diabetes mellitus without complications
CPT/HCPCS: 64555; C1897